=== PATIENT | male | born 1975 | race Caucasian/White ===

== ENCOUNTER 2019-11-24 10:29 | Emergency (ER) | payer OTHER, SELFPAY ==
[2019-11-24 10:30] VITALS: BP 167/92; PULSE 92; RESP 14; TEMP 36.7; O2SAT 97; BMI 51.2
--- NOTE | 2019-11-24 10:35 | EKG12_ITS ---
Test Reason : CP Blood Pressure : / mmHG Vent. Rate : 087 BPM Atrial Rate : 087 BPM P-R Int : 142 ms QRS Dur : 098 ms QT Int : 384 ms P-R-T Axes : 040 -23 024 degrees QTc Int : 462 ms Normal sinus rhythm Normal ECG Confirmed by TASHA SQUIRES, ERICA ([id number]), graphics editor VLAD BAGLEY ([id number] on 11/28/2019 1:45:24 PM Referred By: BRIAN Confirmed By:ANANT CORDOVA MD
[2019-11-24 10:37] VITALS: BP 182/99; PULSE 93; RESP 16; O2SAT 98
--- NOTE | 2019-11-24 10:40 | RAD_ITS ---
STUDY: X-RAY CHEST REASON FOR EXAM: Male, 44 years old. and quot;CHEST PRESSURE and quot; X 3 DAYS TECHNIQUE: Single AP portable view of the chest. COMPARISON: Chest CTA dated February 22, 2017. FINDINGS: Cardiomegaly. Mild congestion. Aorta unremarkable. No focal patchy airspace opacities. No pleural effusions. Upper abdomen unremarkable. Osseous structures intact with mild degenerative features. No pneumothorax. RAD/Chest 1 View (Portable) IMPRESSION: No focal patchy airspace opacities or pleural effusions Cardiomegaly with mild congestion Electronically Signed: Jah Mccoy DO at 11:08 EDT Tel , Service support ,
[2019-11-24 10:55] LABS: Absolute Lymphocyte Count 1.66 X10^3/uL (0.83-4.51); Absolute Neutrophil Count 8.6 X10^3/uL (2.0-7.7); Basophil# 0.07 X10^3/uL; Basophil% 0.6 % (0-1); Eosinophil# 0.05 X10^3/uL; Eosinophils% 0.5 % (0-5); Hematocrit 48.3 % (40-54); Hemoglobin 15.9 g/dL (13.0-16.5); Lymphocyte # 1.66 X10^3/ul (4.0); Mean Corp Hgb Conc 32.9 g/dL (32-36); Mean Corpuscular Hgb 27.7 pg (27.0-32.0); Mean Corpuscular Volume 84.1 fL (80-94); Mean Platelet Vol. 9.8 fl (6.2-12.0); Monocyte# 0.61 X10^3/uL; Monocyte% 5.5 % (0-10); NRBC Flagged by Analyzer 0 % (0-5); Neutrophil # 8.57 X10^3/uL (2.7-7.7); Neutrophil % 77.7 % (47-70); Platelet Count 322 K/mm3 (150-450); RBC Distribution Width SD 39.3 fl (35.1-43.9); Red Blood Count 5.74 M/mm3 (4.6-6.2)
[2019-11-24] MEDS: Aspirin 81 MG TAB.CHEW 324 MG PO (10:55)
--- NOTE | 2019-11-24 11:06 | ED.VISSUMM ---
- ER Visit Summary Date of Service: 11/24/19 Chief Complaint: Chest pain History of Present Illness: The patient is a 44 M past medical history of prediabetes on no meds. Takes an aspirin a day. Residual last 3 days he has had gradual intermittent upper chest pressure. Not specifically associated with exertion. Denies dyspnea. Denies vomiting. One episode of nausea. Denies any radiation to his arm neck or jaw. No back pain. Denies any recent exertional chest pain or exertional dyspnea. States he had a negative stress test about 2 years ago. Nothing specifically makes pain better or worse. Physical Examination: Middle-aged male initial blood pressure 182/99. Pulse ox 90% on room air no signs of hypoxia. H EENT exam unremarkable. Neck nontender no JVD. Lungs clear to auscultation bilaterally. Heart regular rate and rhythm rate about 90 no murmur. Chest wall nontender. Abdomen soft nontender normal bowel sounds no peritoneal signs. He is obese. Extremities moves all 4. Neurovascular intact. Calves are nontender without edema or cords. Back nontender. Neurologically is awake and alert with no focal motor deficits. Test Results: EKG shows normal sinus rhythm rate of 87 with no acute signs of MD or ischemia. Portable chest x-ray shows no acute abnormality. Borderline cardiomegaly. 1 view read by myself. Chest x-ray shows borderline cardiomegaly. Otherwise no acute abnormality. Read both myself and radiologist. Portable 1 view. CBC normal white count 9. Hemoglobin 14. Chemistries normal. Troponin normal. Emergency Department Course and Treatment: Patient worked up for chest pain of uncertain etiology. He has no family history of cardiac disease. He is never had a DVT or PE. Has had no recent travel, surgery or immobilization. No hemoptysis. Pain is not pleuritic. Be treated with p.o. aspirin. Repeat exam patient doing well at 1250. Is symptom-free. He discussed all his symptoms. This does not appear to be exertional related at all. It is atypical chest pain I cannot reproduce it. He had a negative cardiac stress test 2 years ago. He and I discussed admission versus discharge to home. And outpatient follow-up. He does not want to be admitted. Treatment Plan: Follow-up with his doctor. Return if feeling worse. Disposition: Discharge Impression: Acute chest pain of uncertain etiology This note was generated with [employer] software. It may contain incorrect words, spelling, and punctuation that were not noted in review of the chart prior to signing ED Disposition - Plan for ED Patient: Disposition: Home or Assisted Living Instructions: ED Chest Pain Atypical Unkn Cause Referrals: Care Physician,No Primary [NON-STAFF] - As soon as possible Additional Instructions: Follow-up with your doctor in the next several days. Continue daily aspirin. Return if you are feeling worse or having increasing pain or develop shortness of breath. All your test today were normal.
[2019-11-24 11:14] LABS: Anion Gap 6 (5-15); BUN 14 mg/dL (7-18); BUN/Creat Ratio 13.1 RATIO (10-20); Chloride 104 mmol/L (98-107); Creatinine, Serum 1.07 mg/dL (0.70-1.30); EST Glomerular Filtration Rate 79 mL/min (>60); Est Glom Filt Rate - Afr Amer 96 mL/min (>60); Estimated Creatinine Clearance 81.51 ml/min; Glucose 137 mg/dL (74-106); Potassium 3.9 mmol/L (3.5-5.1); Sodium Level 138 mmol/L (136-145)
[2019-11-24 11:32] VITALS: BP 188/104; PULSE 79; RESP 15; O2SAT 96
[2019-11-24 12:18] VITALS: BP 179/102; PULSE 93; RESP 20; O2SAT 96
--- NOTE | 2019-11-24 13:10 | ED.DEP ---
ED Disposition - Plan for ED Patient: Disposition: Home or Assisted Living Instructions: ED Chest Pain Atypical Unkn Cause Referrals: Care Physician,No Primary [NON-STAFF] - As soon as possible Additional Instructions: Follow-up with your doctor in the next several days. Continue daily aspirin. Return if you are feeling worse or having increasing pain or develop shortness of breath. All your test today were normal.
[2019-11-24 13:20] VITALS: BP 144/82
== END 2019-11-24 13:21 | disposition home or self-care (01) ==
PROVIDERS: Emergency Provider Emergency Medicine
DX: R07.89 Other chest pain (principal); R73.03 Prediabetes
CPT/HCPCS: 71045; 80048; 84484; 85025; 93005; 99285; A4216